=== PATIENT | female | born 1985 | race American Indian/Alaskan Native ===

== ENCOUNTER 2017-12-22 12:57 | Emergency (ER) | payer OTHER ==
[2017-12-22 13:21] VITALS: BP 115/65
--- NOTE | 2017-12-22 14:20 | Emergency Department Report ---
ED General Adult HPI - General Chief complaint: Headache Stated complaint: SINUS Time Seen by Provider: 12/22/17 14:14 Source: patient Mode of arrival: Ambulatory Limitations: No Limitations - History of Present Illness Initial comments: Patient is a 32-year-old black female who states she's had sinus congestion and between the eyes with pain medicines 6 out of 10 in severity aching and throbbing for the past several days. Patient's had minimal cough as well and feels as though her ears are stopped up. Patient denies any nausea vomiting fevers chills this time. Patient denies sore throat. - Related Data Previous Rx's Medication Instructions Recorded Last Taken Type Amoxicillin/Potassium Clav 1 each PO BID #14 tablet 12/22/17 Unknown Rx [Augmentin 875-125 Tablet] Fluticasone [Flonase] 1 spray NS QDAY #1 bottle 12/22/17 Unknown Rx predniSONE [Deltasone] 20 mg PO QDAY #5 tab 12/22/17 Unknown Rx traMADol [Ultram] 50 mg PO Q6HR PRN #12 tablet 12/22/17 Unknown Rx Allergies Allergy/AdvReac Type Severity Reaction Status Date / Time No Known Allergies Allergy Unverified 12/22/17 13:19 ED Review of Systems ROS: Stated complaint: SINUS Other details as noted in HPI Comment: All other systems reviewed and negative ED Past Medical Hx - Past Medical History Additional medical history: anemia - Surgical History Past Surgical History?: No - Social History Smoking Status: Never Smoker Substance Use Type: None - Medications Home Medications: Home Medications Medication Instructions Recorded Confirmed Last Taken Type Amoxicillin/Potassium Clav 1 each PO BID #14 tablet 12/22/17 Unknown Rx [Augmentin 875-125 Tablet] Fluticasone [Flonase] 1 spray NS QDAY #1 bottle 12/22/17 Unknown Rx predniSONE [Deltasone] 20 mg PO QDAY #5 tab 12/22/17 Unknown Rx traMADol [Ultram] 50 mg PO Q6HR PRN #12 tablet 12/22/17 Unknown Rx ED Physical Exam - General Limitations: No Limitations General appearance: alert, in no apparent distress - Head Head exam: Present: atraumatic, normocephalic - Eye Eye exam: Present: normal appearance - ENT ENT exam: Present: mucous membranes moist, TM's normal bilaterally, other (he has tenderness over the ethmoid sinus region. TMs are within normal limits.) - Neck Neck exam: Present: normal inspection - Respiratory Respiratory exam: Present: normal lung sounds bilaterally. Absent: respiratory distress - Cardiovascular Cardiovascular Exam: Present: regular rate, normal rhythm. Absent: systolic murmur, diastolic murmur, rubs, gallop - GI/Abdominal GI/Abdominal exam: Present: soft, normal bowel sounds - Extremities Exam Extremities exam: Present: normal inspection - Back Exam Back exam: Present: normal inspection - Neurological Exam Neurological exam: Present: alert, oriented X3 - Psychiatric Psychiatric exam: Present: normal affect, normal mood - Skin Skin exam: Present: warm, dry, intact, normal color. Absent: rash ED Course Vital Signs 12/22/17 13:19 Temperature 98.4 F Pulse Rate 88 Respiratory 18 Rate Blood Pressure 115/65 O2 Sat by Pulse 100 Oximetry ED Medical Decision Making - Medical Decision Making She'll be empirically treated for sinus infection will be discharged home. Critical care attestation.: If time is entered above; I have spent that time in minutes in the direct care of this critically ill patient, excluding procedure time. ED Disposition Clinical Impression: Acute sinusitis Qualifiers: Sinusitis location: ethmoidal Recurrence: not specified as recurrent Qualified Code(s): J01.20 - Acute ethmoidal sinusitis, unspecified Disposition: - TO HOME OR SELFCARE Is pt being admited?: No Does the pt Need Aspirin: No Condition: Stable Instructions: Sinusitis (ED) Referrals: PRIMARY CARE, [Primary Care Provider] - 3-5 Days Time of Disposition: 14:19
== END 2017-12-22 14:32 | disposition home or self-care (01) ==
LOC: ED 12:57
DX: J01.20 Acute ethmoidal sinusitis, unspecified (principal)
CPT/HCPCS: 99282